=== PATIENT | female | born 1955 | race Caucasian/White ===

== ENCOUNTER 2022-02-01 17:52 | Emergency (ER) | payer SELFPAY ==
[~2022-02-01] VITALS: Ht 175.3 cm; Wt 112.3 kg
[2022-02-01 17:53] VITALS: BP 156/71
== END 2022-02-01 19:40 | disposition left against medical advice (07) ==
LOC: M ED 17:52
DX: Z53.29 Procedure and treatment not carried out because of patient's decision for other reasons (principal)

== ENCOUNTER 2022-03-20 15:31 | Emergency (ER) | payer SELFPAY ==
[~2022-03-20] VITALS: Ht 172.7 cm; Wt 100.0 kg
[2022-03-20 15:31] VITALS: BP 137/89
[2022-03-20] MEDS ORDERED: PYRI1TAB5 PO (16:58)
[2022-03-20] MEDS ORDERED: BACT800T5 PO (16:58)
== END 2022-03-20 17:11 | disposition home or self-care (01) ==
LOC: M ED 15:31
DX: N30.00 Acute cystitis without hematuria (principal)